=== PATIENT | female | born 1960 | race Caucasian/White ===

== ENCOUNTER 2017-03-23 20:37 | Emergency (ER) | payer OTHER ==
[~2017-03-23] VITALS: Ht 162.6 cm; Wt 86.2 kg
--- NOTE | 2017-03-23 20:45 | NUR ---
TO BED 7 A 56 YO FEMALE PATIENT BB FAMILY; BILAT FLANK PAIN X4 DAYS. VSS. NAD NOTED. NONDIAPHORETIC. AMBULATORY. GOWNED. COMFORT MEASURES RENDERED. AWAITING FOR ER MD KWAN.
--- NOTE | 2017-03-23 21:39 | NUR ---
NITHIN BLAKE AT BEDSIDE TO EVALUATE PATIENT.
[2017-03-23] MEDS ORDERED: ONDANSETRON HCL/PF 4 MG/2 ML VIAL ONE (21:51)
[2017-03-23] MEDS ORDERED: MORPHINE SULFATE INJ 4 MG/ML DISP.SYRIN ONE (21:51)
--- NOTE | 2017-03-23 21:55 | NUR ---
STARTED A SALINE LOCK ON THE LAC G18, BLOOD DRAWN AND SENT TO LAB.
[2017-03-23] MEDS ORDERED: ONDANSETRON HCL/PF 4 MG/2 ML VIAL IVP ONE (22:00)
[2017-03-23] MEDS ORDERED: IV NS 0.9% 1,000 ML BAG IV ONE (22:00)
[2017-03-23] MEDS ORDERED: MORPHINE SULFATE INJ 2 MG/ML DISP.SYRIN IV ONE (22:00)
--- NOTE | 2017-03-23 22:00 | NUR ---
MEDICATED PATIENT ORDERED.
[2017-03-23 22:11] LABS: CALCIUM, SERUM 8.9 mg/dL (8.5-10.1); CREATININE 0.6 mg/dL (0.6-1.3); POTASSIUM 3.6 mmol/L (3.5-5.1)
[2017-03-23 22:19] LABS: ALBUMIN 3.5 g/dL (3.4-5.0); BILIRUBIN,DIRECT 0.1 mg/dL (0.0-0.2); BILIRUBIN,TOTAL 0.8 mg/dL (0.2-1.0); TOTAL PROTEIN, SERUM 7.5 g/dL (6.4-8.2)
[2017-03-23 22:34] LABS: BASOPHILS # (AUTO) 0.1 /CMM (0.0-0.2); BASOPHILS % (AUTO) 0.7 % (0.0-2.0); EOSINOPHILS # (AUTO) 0.6 /CMM (0.0-0.7); EOSINOPHILS % (AUTO) 6.1 % (0.0-6.0); HEMATOCRIT 37 % (33-45); HEMOGLOBIN 12.7 g/dL (11.5-14.8); LYMPHOCYTES # (AUTO) 2.1 /CMM (0.8-4.8); LYMPHOCYTES % (AUTO) 21.7 % (20.0-44.0); MEAN CORPUSCULAR HEMOGLOBIN 30 PG (26.0-33.0); MEAN CORPUSCULAR HGB CONC 34 g/dl (31.0-36.0); MEAN CORPUSCULAR VOLUME 89 fL (82-100); MONOCYTES # (AUTO) 0.8 /CMM (0.1-1.30); MONOCYTES % (AUTO) 8.4 % (2.0-12.0); NEUTROPHILS # (AUTO) 6.1 /CMM (1.8-8.9); NEUTROPHILS % (AUTO) 63.1 % (43.0-81.0); PLATELET COUNT (AUTO) 234 /CMM (150-450); RDW COEFFICIENT OF VARIATION 13.7 (11.5-15.0); WHITE BLOOD COUNT (AUTO) 9.6 K/uL (4.3-11.0)
[2017-03-23 22:37] LABS: APPEARANCE,URINE CLEAR (CLEAR); BILIRUBIN,URINE NEGATIVE (NEGATIVE); BLOOD, URINE NEGATIVE Ery/uL (NEGATIVE); COLOR,URINE YELLOW (YELLOW); KETONES,URINE NEGATIVE (NEGATIVE); LEUKOCYTE ESTERASE ,URINE 2+ (NEGATIVE); NITRITE, URINE NEGATIVE (NEGATIVE); PROTEIN,URINE NEGATIVE (NEGATIVE); UGLUCOSE NEGATIVE (NEGATIVE); UROBILINOGEN,URINE 0.2 EU/dL (0.2)
[2017-03-23 22:43] LABS: BACTERIA,URINE Few /HPF (None Seen); RBC,URINE NONE SEEN /HPF (0-2); SQUAMOUS EPITHELIAL CELL,UR Few /HPF (None Seen)
[2017-03-23 22:44] LABS: INR 0.96 (0.87-1.13)
[2017-03-23 23:47] VITALS: BP 142/76
--- NOTE | 2017-03-23 23:47 | NUR ---
IV removed. Catheter intact and site benign. Pressure and 4x4 applied to site. No bleeding noted. Patient discharged to home in stable condition. Written and verbal after care instructions given. Patient verbalizes understanding of instruction. Patient is ambulatory with steady gait, accompanied by family. Instructed not to drive. No further complaints. vss.
== END 2017-03-23 23:49 | disposition home or self-care (01) ==
LOC: ER 20:41
DX: N12 Tubulo-interstitial nephritis, not specified as acute or chronic (principal)
CPT/HCPCS: 36415; 80048; 80076; 81001; 83690; 85025; 85730; 87086; 96361; 96374; 96375; 99284; A4606; J2270; J2405; J7030; Z7610; 81000-TC

== ENCOUNTER 2018-12-29 21:53 | Emergency (ER) | payer OTHER ==
[~2018-12-29] VITALS: Ht 167.6 cm; Wt 93.4 kg
[2018-12-29 22:10] VITALS: BP 154/88
--- NOTE | 2018-12-29 22:10 | NUR ---
PT BIBF. C/O "HAVING SHARP PAIN BEHIND MY R EYE RADIATING TO BEHIND MY HEAD" -SOB VSS. -NEURO DEFITIC. CHRONIC R FACIAL PARALYSIS NOTED. -NEURO DEFICITS. PT [place] SPEAKING WITH FAMILY AT BEDSIDE. PT AOX4. PT ON MONITOR IN BED 3. WILL CONTINUE TO MONITOR.
[2018-12-29] MEDS ORDERED: GABAPENTIN 100 MG CAPSULE ONE (22:24)
[2018-12-29] MEDS ORDERED: GABAPENTIN 100 MG CAPSULE PO ONE (22:30)
--- NOTE | 2018-12-29 23:30 | NUR ---
Patient discharged to home in stable condition. Written and verbal after care instructions given. Patient verbalizes understanding of instruction. PT AMBULATORY WITH STEADY GAIT ACCOMPANIED BY FAMILY.
== END 2018-12-29 23:31 | disposition home or self-care (01) ==
LOC: ER 21:58
DX: G50.0 Trigeminal neuralgia (principal)
CPT/HCPCS: 70450-TC

== ENCOUNTER 2019-05-15 08:39 | Emergency (ER) | payer OTHER ==
[~2019-05-15] VITALS: Ht 162.6 cm; Wt 90.7 kg
[2019-05-15 08:40] VITALS: BP 102/78
[2019-05-15] MEDS ORDERED: HYDROCODONE/APAP 5/325MG 1 EACH TABLET ONE (08:50)
--- NOTE | 2019-05-15 08:50 | NUR ---
SEEN AND EXAMINED BY .
--- NOTE | 2019-05-15 08:52 | NUR ---
WOUND CLEANING AND DRESSING DONE.
[2019-05-15] MEDS ORDERED: HYDROCODONE/APAP 5/325MG 1 EACH TABLET PO ONE (09:00)
--- NOTE | 2019-05-15 09:04 | NUR ---
Patient discharged to home in stable condition. Written and verbal after care instructions given. Patient verbalizes understanding of instruction.
== END 2019-05-15 09:06 | disposition home or self-care (01) ==
LOC: ER 08:40
DX: I83.891 Varicose veins of right lower extremity with other complications (principal); I10 Essential (primary) hypertension
CPT/HCPCS: 99283; A6403

== ENCOUNTER 2023-03-21 06:34 | Emergency (ER) | payer OTHER ==
[~2023-03-21] VITALS: Ht 162.6 cm; Wt 72.6 kg
[2023-03-21 07:51] LABS: BASOPHILS % (AUTO) 0.6 % (0.0-2.0); EOSINOPHILS # (AUTO) 0.1 K/uL (0.0-0.7); EOSINOPHILS % (AUTO) 1.7 % (0.0-6.0); HEMATOCRIT 41 % (33-45); HEMOGLOBIN 13.9 g/dL (11.5-14.8); LYMPHOCYTES # (AUTO) 1.8 K/uL (0.8-4.8); LYMPHOCYTES % (AUTO) 24.8 % (20.0-44.0); MEAN CORPUSCULAR HEMOGLOBIN 30 PG (26.0-33.0); MEAN CORPUSCULAR HGB CONC 34 g/dl (31.0-36.0); MEAN CORPUSCULAR VOLUME 89 fL (82-100); MONOCYTES # (AUTO) 0.4 K/uL (0.1-1.30); MONOCYTES % (AUTO) 5.8 % (2.0-12.0); NEUTROPHILS # (AUTO) 4.8 K/uL (1.8-8.9); NEUTROPHILS % (AUTO) 67.1 % (43.0-81.0); PLATELET COUNT (AUTO) 240 K/uL (150-450); RED BLOOD CELL COUNT(AUTO) 4.62 MIL/uL (4.0-5.2); RED CELL DISTRIBUTION WIDTH 13.5 % (11.5-15.0); WHITE BLOOD COUNT (AUTO) 7.2 K/uL (4.3-11.0)
[2023-03-21] MEDS ORDERED: IBUPROFEN 400 MG TABLET ONE (07:53)
[2023-03-21] MEDS ORDERED: ACETAMINOPHEN 325 MG TABLET ONE (07:53)
[2023-03-21] MEDS ORDERED: IBUPROFEN 400 MG TABLET PO ONE (08:00)
[2023-03-21] MEDS ORDERED: ACETAMINOPHEN 325 MG TABLET PO ONE (08:00)
[2023-03-21 08:18] LABS: CALCIUM, SERUM 9.4 mg/dL (8.5-10.1); CARBON DIOXIDE 28 mmol/L (21-32); CHLORIDE 100 mmol/L (98-107); CREATININE 0.6 mg/dL (0.6-1.3); GLUCOSE 106 mg/dL (74-106); POTASSIUM 3.4 mmol/L (3.5-5.1); SODIUM SERUM 137 mmol/L (136-145); UREA NITROGEN, BLOOD 8 mg/dL (7-18)
[2023-03-21 08:31] LABS: NT-PRO BNP 180 pg/mL (0-125)
[2023-03-21] MEDS ORDERED: dexAMETHasone 1 MG TABLET ONE (12:09)
[2023-03-21] MEDS ORDERED: LIDOCAINE VISCOUS 2% UD 15 ML UDC ONE (12:09)
[2023-03-21] MEDS ORDERED: dexAMETHasone 4 MG TABLET ONE (12:10)
[2023-03-21] MEDS ORDERED: LIDOCAINE VISCOUS 2% UD 15 ML UDC MM ONE (12:30)
[2023-03-21] MEDS ORDERED: dexAMETHasone 1 MG TABLET PO ONE (12:30)
[2023-03-21] MEDS ORDERED: DEXA6TAB6 PO ×2 (14:59→15:17)
[2023-03-21 15:20] VITALS: BP 144/80; TEMP 98.5; O2SAT 99
== END 2023-03-21 15:20 | disposition home or self-care (01) ==
LOC: ER 06:39
DX: J02.9 Acute pharyngitis, unspecified (principal); J04.0 Acute laryngitis; I10 Essential (primary) hypertension; E78.5 Hyperlipidemia, unspecified; Z20.822 Contact with and (suspected) exposure to COVID-19
CPT/HCPCS: 99285; 93970; 71045; 87426; 93005; 87804 ×2; 85025; 80048; 36415; 87880; 84484; 83880; J8540 ×2; 86403-TC

== ENCOUNTER 2023-07-03 08:50 | Emergency (ER) | payer OTHER ==
[~2023-07-03] VITALS: Ht 170.2 cm; Wt 88.5 kg
[~2023-07-03 08:50] MED LIST: DEXA6TAB6 PO
[2023-07-03] MEDS ORDERED: NITROFURANTOIN/MONOHYDRATE MACROCRYSTALS 100 MG CAPSULE ONE (09:18)
[2023-07-03] MEDS: NITROFURANTOIN/MONOHYDRATE MACROCRYSTALS 100 MG CAPSULE PO ONE (09:23)
[2023-07-03 09:25] VITALS: TEMP 98.6
[2023-07-03] MEDS ORDERED: NITR100C6 PO (09:25)
[2023-07-03 09:38] LABS: APPEARANCE,URINE Slightly Cloudy (CLEAR); BILIRUBIN,URINE Negative (NEGATIVE); BLOOD, URINE Large Ery/uL (NEGATIVE); COLOR,URINE YELLOW (YELLOW); KETONES,URINE Negative (NEGATIVE); LEUKOCYTE ESTERASE ,URINE Trace (NEGATIVE); NITRITE, URINE Negative (NEGATIVE); PH,URINE 6.5 (5.0-8.0); PROTEIN,URINE Negative (NEGATIVE); UGLUCOSE Negative (NEGATIVE); UROBILINOGEN,URINE 0.2 EU/dL (0.2)
[2023-07-03 09:46] VITALS: BP 152/82; O2SAT 99
[2023-07-03 09:54] LABS: RBC,URINE TOO NUMEROUS TO COUN /HPF (0-2)
[2023-07-03 09:55] LABS: ADD URINE CULTURE NO; BACTERIA,URINE Few /HPF (None Seen); SQUAMOUS EPITHELIAL CELL,UR Few /HPF (None Seen)
== END 2023-07-03 09:41 | disposition home or self-care (01) ==
LOC: ER 08:56
DX: N39.0 Urinary tract infection, site not specified (principal); I10 Essential (primary) hypertension
CPT/HCPCS: 81001; 87086-TC

== ENCOUNTER → 2023-08-02 | Emergency (ER) | payer OTHER ==
[~2023-08-02] VITALS: Ht 162.6 cm; Wt 93.4 kg
[~2023-08-02] MED LIST changes: +KETO10TA2 PO; +KETOROLAC TROMETHAMINE INJ 30 MG/ML VIAL ONE; +METO5TAB87 PO; +METOCLOPRAMIDE HCL 10 MG/2 ML VIAL ONE; +NITR100C6 PO; +SUMA100T PO; +SUMATRIPTAN SUCCINATE 6 MG/0.5 ML VIAL SQ ONE; +diphenhydrAMINE HCL 50 MG/ML VIAL ONE
[2023-08-02] MEDS: SUMATRIPTAN SUCCINATE 6 MG/0.5 ML VIAL SQ ONE (14:26)
[2023-08-02] MEDS: IV NS 0.9% 1,000 ML BAG IV ONE (14:26)
[2023-08-02] MEDS: diphenhydrAMINE HCL 50 MG/ML VIAL IV ONE (14:50)
[2023-08-02] MEDS: KETOROLAC TROMETHAMINE INJ 30 MG/ML VIAL IV ONE (14:51)
[2023-08-02] MEDS: METOCLOPRAMIDE HCL 10 MG/2 ML VIAL IV ONE (14:51)
[2023-08-02 14:52] LABS: BASOPHILS % (AUTO) 0.4 % (0.0-2.0); EOSINOPHILS % (AUTO) 0.1 % (0.0-6.0); HEMATOCRIT 36 % (33-45); HEMOGLOBIN 12.3 g/dL (11.5-14.8); LYMPHOCYTES # (AUTO) 1.4 K/uL (0.8-4.8); LYMPHOCYTES % (AUTO) 12.6 % (20.0-44.0); MEAN CORPUSCULAR HEMOGLOBIN 30 PG (26.0-33.0); MEAN CORPUSCULAR HGB CONC 34 g/dl (31.0-36.0); MEAN CORPUSCULAR VOLUME 90 fL (82-100); MONOCYTES # (AUTO) 1.2 K/uL (0.1-1.30); NEUTROPHILS # (AUTO) 8.5 K/uL (1.8-8.9); NEUTROPHILS % (AUTO) 75.9 % (43.0-81.0); PLATELET COUNT (AUTO) 176 K/uL (150-450); RED BLOOD CELL COUNT(AUTO) 4.06 MIL/uL (4.0-5.2); RED CELL DISTRIBUTION WIDTH 13.9 % (11.5-15.0); WHITE BLOOD COUNT (AUTO) 11.2 K/uL (4.3-11.0)
[2023-08-02 15:02] LABS: CALCIUM, SERUM 7.1 mg/dL (8.5-10.1); CREATININE 0.9 mg/dL (0.6-1.3); POTASSIUM 3.2 mmol/L (3.5-5.1)
[2023-08-02] MEDS: POTASSIUM CHLORIDE 20 MEQ TAB.PRT.SR PO ONE (15:52)
[2023-08-02 16:58] VITALS: BP 148/62; TEMP 98; O2SAT 97
== END | disposition home or self-care (01) ==
LOC: ER 13:53
DX: R51.9 Headache, unspecified (principal); I10 Essential (primary) hypertension; Z79.899 Other long term (current) drug therapy
CPT/HCPCS: 99285; 96374; 70450; 96375; 96361; 93005; 85025; 80048; 36415; 96372; J1200; J3030; J2765; J1885; J7030